=== PATIENT | male | born 1995 | race African-American/Black ===

== ENCOUNTER 2018-09-17 14:26 | Emergency (ER) | payer OTHER ==
[2018-09-17] MEDS ORDERED: HYDROCODONE/ACETAMINOPHEN 5/325 MG TAB ONE (15:02)
[2018-09-17] MEDS ORDERED: ONDANSETRON ODT 4 MG TAB ONE (15:03)
== END 2018-09-17 16:28 | disposition home or self-care (01) ==
LOC: EDH 14:26
DX: S80.11XA Contusion of right lower leg, initial encounter (principal); R07.89 Other chest pain; Z88.0 Allergy status to penicillin; Z72.0 Tobacco use; V49.49XA Driver injured in collision with other motor vehicles in traffic accident, initial encounter; Y93.89 Activity, other specified; Y92.89 Other specified places as the place of occurrence of the external cause; Y99.8 Other external cause status
CPT/HCPCS: 71045; 73562; 73590; 93005

== ENCOUNTER 2018-10-02 22:41 | Emergency (ER) | payer SELFPAY | END 2018-10-03 02:26 | disposition home or self-care (01) | LOC: EDH 22:41 | DX: S80.01XA Contusion of right knee, initial encounter (principal); Z88.0 Allergy status to penicillin; X58.XXXA Exposure to other specified factors, initial encounter; Y93.89 Activity, other specified; Y92.89 Other specified places as the place of occurrence of the external cause; Y99.8 Other external cause status | CPT/HCPCS: 93971 ==